=== PATIENT | female | born 1990 | race Caucasian/White ===

== ENCOUNTER 2017-05-17 09:40 | Emergency (ER) | payer BC ==
[~2017-05-17] VITALS: Ht 149.9 cm; Wt 82.1 kg
[~2017-05-17 09:40] MED LIST: ANUSOL-HC25 MG RECTAL; HYDROCODONE-AP1 EAC6 PO; IBUPROFEN 800800 M1 PO; LIDOCAINE 22 %/30 GM TOP; NOHOMEMEDICATIONS; TOBREX5 ML OP; TOPAMAX 25 MG T25 M1 PO
[2017-05-17 10:09] LABS: ABSOLUTE BASOPHILS 0.1 thou/uL (0.0-0.2); ABSOLUTE EOSINOPHILS 0.4 thou/uL (0.0-0.7); ABSOLUTE LYMPHOCYTES 1.9 thou/uL (0.8-5.3); ABSOLUTE MONOCYTES 0.6 thou/uL (0.0-1.2); ABSOLUTE NEUTROPHILS 5.9 thou/uL (1.6-8.1); BASOPHILS 0.6 %; HEMATOCRIT 35.6 % (37.0-47.0); HEMOGLOBIN 11.6 gm/dL (12.0-15.0); LYMPHOCYTES 21.9 %; MCH 26.3 pg (26.0-34.0); MCHC 32.6 g/dL (28.0-37.0); MCV 80.6 fL (80.0-100.0); MPV 8.7 fl. (7.2-11.1); NUCLEATED RBCS 0 /100WBC; PLATELET COUNT* 244 thou/uL (150-400); POLYS 66.5 %; RBC 4.41 mil/uL (4.20-5.00); RDW-CV 13.5 % (10.5-14.5); WBC 8.8 thou/uL (4.0-11.0)
[2017-05-17 10:16] LABS: ANION GAP 5 mmol/L (7-16); BUN 17 mg/dL (7-18); CALCIUM 8.4 mg/dL (8.5-10.1); CHLORIDE 106 mmol/L (98-107); CO2 29 mmol/L (21-32); CREATININE 0.8 mg/dL (0.6-1.3); GLUCOSE 91 mg/dL (70-99); INR 1.1; POTASSIUM 3.9 mmol/L (3.5-5.1); PROTIME 10.3 Seconds (9.20-11.50); SODIUM 140 mmol/L (136-145)
[2017-05-17 10:27] LABS: ALBUMIN 3.2 g/dL (3.4-5.0); ALKALINE PHOSPHATASE 98 U/L (46-116); LIPASE 95 U/L (73-393); NT-PRO BRAIN NAT PEPTIDE 53 pg/mL (<300); SGOT 16 U/L (15-37); SGPT 18 U/L (30-65); TOTAL BILIRUBIN 0.2 mg/dL (<0.1-1.0); TOTAL PROTEIN 7.4 g/dL (6.4-8.2); TROPONIN-I LEVEL <0.06 ng/mL (<0.06)
[2017-05-17] MEDS ORDERED: PHENERGAN 25 MG25 M1 PO (13:43)
[2017-05-17] MEDS ORDERED: TORADOL 10 MG T10 MG PO (13:43)
[2017-05-17 13:53] VITALS: BP 123/80
--- NOTE | 2017-05-18 11:40 | EKG ---
[place] [address] ELECTROCARDIOGRAM REPORT Name: MITA REYNOLDS Room: [facility]#: [id number] Admission: 05/17/17 Attend Phys: Discharge: 05/17/17 Date of : 86 Report #: [id number] THIS REPORT FOR: //name// [facility] ED Test Date: 2017-05-17 Test Time: 09:45:44 Pat Name: MITA REYNOLDS Department: Room: Gender: F Film Recordist: [facility] STUDENT : 1990 Requested By: Sajan Arredondo Order Number: [id number] MD: Genaro Chirinos Measurements Intervals [place] Rate: 83 P: 37 SD: 138 QRS: 39 QRSD: 87 T: 5 QT: 355 QTc: 418 Interpretive Statements Sinus rhythm No previous ECG available for comparison Electronically Signed On 05-18-2017 11:39:58 ORGANIZATIONAL PSYCHOLOGIST by Genaro Chirinos [email or web address] <ELECTRONICALLY SIGNED> By: Genaro Chirinos MD, [facility] 05/18/17 1139 0945 0945 Genaro Chirinos MD, FACC /EPI
== END 2017-05-17 13:54 | disposition home or self-care (01) ==
LOC: M.ERS 09:40
PROVIDERS: Emergency Medicine
DX: R07.89 Other chest pain (principal)